=== PATIENT | male | born 1960 | race Asian ===

== ENCOUNTER 2018-07-26 13:21 | Emergency (ER) | payer MEDICAID, OTHER ==
[~2018-07-26] VITALS: Ht 162.6 cm; Wt 63.5 kg
--- NOTE | 2018-07-26 14:26 | NUR ---
ED Nurse Note: Pt came into the Er w/ complaints of blood in stool since Thursday. Pt had only 1 episode. Pt is complaining of abdominal pain 5/10. Non radiating. Pt is A + O x4. Ambulatory. Skin warm to touch.
[2018-07-26 14:27] VITALS: BP 117/76
[2018-07-26 14:35] LABS: APPEARANCE,URINE CLEAR; BASOPHILS % (AUTO) 1.2 % (0.0-2.0); BILIRUBIN, URINE NEGATIVE (NEGATIVE); COLOR,URINE PALE YELLOW; EOSINOPHILS % (AUTO) 3.4 % (0.0-3.0); GLUCOSE, URINE (UA) NEGATIVE (NEGATIVE); HEMATOCRIT 43.8 % (42.0-52.0); HEMOGLOBIN 15.4 G/DL (14.2-18.0); KETONES,URINE NEGATIVE (NEGATIVE); LEUKOCYTE ESTERASE ,URINE NEGATIVE (NEGATIVE); LYMPHOCYTES % (AUTO) 21.7 % (20.0-45.0); MEAN CORPUSCULAR VOLUME 88 FL (80-99); MONOCYTES % (AUTO) 6.1 % (1.0-10.0); NEUTROPHILS % (AUTO) 67.6 % (45.0-75.0); NITRITE,URINE NEGATIVE (NEGATIVE); PH,URINE 8 (4.5-8.0); PLATELET COUNT 274 K/UL (150-450); PROTEIN,URINE NEGATIVE (NEGATIVE); UROBILINOGEN,URINE NORMAL MG/DL (0.0-1.0); WHITE BLOOD COUNT 8.2 K/UL (4.8-10.8)
[2018-07-26 14:39] LABS: INR 0.9 (0.9-1.1)
--- NOTE | 2018-07-26 15:15 | Emergency Room Report ---
History of Present Illness General Chief Complaint: Gastrointestinal Bleed Source: Patient Present Illness HPI Patient states that for the past 3 weeks he has had very hard bowel movements with hard stools. He associates this with drinking bulletproof coffee. He denies abdominal pain. He states that 2 days ago he was having a very hard bowel movement and noted bright red blood in the toilet. He states that happened 2 other times in the past 2 days. He states that his stool is brown in color. He had a colonoscopy 3 years ago that was within normal limits. He denies abdominal pain. He denies fever or chills. He denies dysuria or hematuria. He denies easy bruising or bleeding. He denies chest pain or shortness of breath. He has no other complaints. Allergies: Coded Allergies: No Known Allergies (Unverified , 07/26/18) Patient History Past Medical History: none, see triage record Social History: Denies: smoking, alcohol use, drug use Reviewed Nursing Documentation: PMH: Agreed; PSxH: Agreed Nursing Documentation-PMH Past Medical History: No History, Except For Hx Gastrointestinal Problems: No - hemorroid Review of Systems All Other Systems: negative except mentioned in HPI Physical Exam Vital Signs Date Time Temp Pulse Resp B/P (MAP) Pulse Ox O2 Delivery O2 Flow Rate FiO2 07/26/18 13:26 98.2 80 18 121/82 96 Room Air 07/26/18 14:27 98 Sp02 EP Interpretation: reviewed, normal General Appearance: no apparent distress, alert, GCS 15, non-toxic Head: normocephalic, atraumatic Eyes: bilateral eye normal inspection, bilateral eye PERRL ENT: hearing grossly normal, normal pharynx, no angioedema, normal voice Neck: full range of motion, supple/symm/no masses Respiratory: chest non-tender, lungs clear, normal breath sounds, no respiratory distress, no retraction, no accessory muscle use, speaking full sentences Cardiovascular #1: regular rate, rhythm, no edema Gastrointestinal: normal bowel sounds, non tender, soft, non-distended, no guarding, no rebound Rectal: hemorrhoids - Multiple hemorrhoids. Brown stool. Musculoskeletal: back normal, gait/station normal, normal range of motion, non- tender Neurologic: alert, oriented x3, responsive, motor strength/tone normal, sensory intact, speech normal Psychiatric: judgement/insight normal, memory normal, mood/affect normal, no suicidal/homicidal ideation Skin: normal color, no rash, warm/dry, well hydrated Medical Decision Making Diagnostic Impression: Primary Impression: Bleeding hemorrhoids ER Course This patient has hemorrhoids identified on examination. The patient showed me photographs of the his brown stool with bright red blood in the toilet. The patient's laboratory workup is reassuring. Further, the patient also had a normal colonoscopy 3 years ago which is very reassuring. Rectal exam is benign. I will start the patient on steroid suppositories and stool softeners. The patient was instructed to follow-up closely with his primary care physician. Laboratory Tests Test 07/26/18 14:20 White Blood Count 8.2 K/UL (4.8-10.8) Red Blood Count 5.00 M/UL (4.70-6.10) Hemoglobin 15.4 G/DL (14.2-18.0) Hematocrit 43.8 % (42.0-52.0) Mean Corpuscular Volume 88 FL (80-99) Mean Corpuscular Hemoglobin 30.9 PG (27.0-31.0) Mean Corpuscular Hemoglobin Concent 35.2 G/DL (32.0-36.0) Red Cell Distribution Width 12.0 % (11.6-14.8) Platelet Count 274 K/UL (150-450) Mean Platelet Volume 6.5 FL (6.5-10.1) Neutrophils (%) (Auto) 67.6 % (45.0-75.0) Lymphocytes (%) (Auto) 21.7 % (20.0-45.0) Monocytes (%) (Auto) 6.1 % (1.0-10.0) Eosinophils (%) (Auto) 3.4 % (0.0-3.0) H Basophils (%) (Auto) 1.2 % (0.0-2.0) Prothrombin Time 10.0 SEC (9.30-11.50) Prothrombin Time INR 0.9 (0.9-1.1) PTT 27 SEC (23-33) Urine Color Pale yellow Urine Appearance Clear Urine pH 8 (4.5-8.0) Urine Specific [place] 1.010 (1.005-1.035) Urine Protein Negative (NEGATIVE) Urine Glucose (UA) Negative (NEGATIVE) Urine Ketones Negative (NEGATIVE) Urine Blood Negative (NEGATIVE) Urine Nitrite Negative (NEGATIVE) Urine Bilirubin Negative (NEGATIVE) Urine Urobilinogen Normal MG/DL (0.0-1.0) Urine Leukocyte Esterase Negative (NEGATIVE) Sodium Level Pending Potassium Level Pending Chloride Level Pending Carbon Dioxide Level Pending Blood Urea Nitrogen Pending Creatinine Pending Estimate Glomerular Filtration Rate Pending Glucose Level Pending Calcium Level Pending Total Bilirubin Pending Aspartate Amino Transferase (AST) Pending Alanine Aminotransferase (ALT) Pending Alkaline Phosphatase Pending Total Protein Pending Albumin Pending Globulin Pending Last Vital Signs Date Time Temp Pulse Resp B/P (MAP) Pulse Ox O2 Delivery O2 Flow Rate FiO2 07/26/18 14:27 74 30 Room Air 98 07/26/18 14:27 98.1 117/76 98 Scripts No Active Prescriptions or Reported Meds Referrals: NON PHYSICIAN (PCP) Ruthie Osorio DO Jul 26, 2018 15:15
[2018-07-26 15:27] LABS: ANION GAP 7 mmol/L (5-15); BLOOD UREA NITROGEN 13 mg/dL (7-18); CALCIUM 8.6 MG/DL (8.5-10.1); CARBON DIOXIDE 31 MMOL/L (21-32); CHLORIDE 104 MMOL/L (98-107); CREATININE 1.2 MG/DL (0.55-1.30); POTASSIUM 4.2 MMOL/L (3.5-5.1); SODIUM 142 MMOL/L (136-145)
[2018-07-26 15:32] LABS: ALBUMIN 4.2 G/DL (3.4-5.0); ALBUMIN/GLOBULIN RATIO 1.1 (1.0-2.7); ALKALINE PHOSPHATASE 74 U/L (46-116); BILIRUBIN,TOTAL 0.7 MG/DL (0.2-1.0)
[2018-07-26 15:47] LABS: ALANINE AMINOTRANSFERASE 38 U/L (12-78); ASPARTATE AMINO TRANSFERASE 50 U/L (15-37)
[2018-07-26] MEDS ORDERED: COLACE100 MG ORAL (15:51)
[2018-07-26] MEDS ORDERED: MIRALAX17 G2 ORAL (15:51)
[2018-07-26] MEDS ORDERED: ANUSOL-HC25 MG RECTAL (15:51)
[2018-07-26 16:03] VITALS: BP 113/79
--- NOTE | 2018-07-26 16:04 | NUR ---
ER DISCHARGE NOTE: Patient is cleared to be discharged per ERMD, pt is aox4, on room air, with stable vital signs. pt was given dc and prescription instructions, pt was able to verbalize understanding, pt id band and iv site removed without complications. pt is able to ambulate with steady gait. pt took all belongings.
== END 2018-07-26 16:04 | disposition home or self-care (01) ==
LOC: EMR 14:15
DX: K64.9 Unspecified hemorrhoids (principal)
CPT/HCPCS: 36415; 80053; 81003; 85025; 85610; 85730; 96360; 99284

== ENCOUNTER 2018-09-28 16:00 | Emergency (ER) | payer OTHER ==
[~2018-09-28] VITALS: Ht 162.6 cm; Wt 63.5 kg
[~2018-09-28 16:00] MED LIST: ANUSOL-HC25 MG RECTAL; COLACE100 MG ORAL; MIRALAX17 G2 ORAL
--- NOTE | 2018-09-28 16:10 | NUR ---
ED Nurse Note: Patient walked into ED c/o left earache for 1 week. patient is alert awake x4 ambulatory, breathing unlabored and even.
[2018-09-28 16:18] VITALS: BP 112/75
--- NOTE | 2018-09-28 16:31 | Emergency Room Report ---
History of Present Illness General Chief Complaint: Earache Present Illness HPI 58-year-old male with no significant past medical history here complaining of 2 days of pain and pressure in left ear. Patient reports that started after he was showering 2 days ago. Denies fever and chills, sore throat, cough and congestion. Patient is rating his pain 5 out of 10 upon opening and closing his jaw as well as touching his ear. Patient tried to clean his ear with Q-tip which she reports caused more pain in the affected area. Denies chest pain, shortness of breath, palpitation, and other associated symptoms. Denies hearing loss, vertigo, dizziness, tinnitus Allergies: Coded Allergies: No Known Allergies (Unverified , 07/26/18) Patient History Past Medical History: see triage record Past Surgical History: unable to obtain Pertinent Family History: none Immunizations: UTD Reviewed Nursing Documentation: PMH: Agreed; PSxH: Agreed Nursing Documentation-PMH Hx Gastrointestinal Problems: No - hemorroid Review of Systems All Other Systems: negative except mentioned in HPI Physical Exam Vital Signs Date Time Temp Pulse Resp B/P (MAP) Pulse Ox O2 Delivery O2 Flow Rate FiO2 09/28/18 16:02 98.4 82 20 114/77 (89) 96 Room Air Sp02 EP Interpretation: reviewed, normal General Appearance: normal inspection, well appearing, no apparent distress, alert Eyes: bilateral eye normal inspection, bilateral eye PERRL ENT: normal pharynx, normal voice, uvula midline, other - Erythema of left external ear canal, tragus tender to palpation, no bulging or perforation of TM noted Neck: normal inspection, full range of motion, supple, thyroid normal Respiratory: normal inspection, chest non-tender, lungs clear, normal breath sounds, no rhonchi, no respiratory distress Cardiovascular #1: normal inspection, normal peripheral pulses, regular rate, rhythm, no murmur Gastrointestinal: normal inspection, non tender, soft Genitourinary: normal inspection, no CVA tenderness Neurologic: normal inspection, alert, oriented x3, responsive Psychiatric: normal inspection, judgement/insight normal Skin: normal inspection, normal color, no rash, warm/dry Lymphatic: normal inspection, no adenopathy Medical Decision Making PA Attestation All my diagnosis and treatment plans were reviewed ad discussed with my supervising physician Dr. Royal Diagnostic Impression: Primary Impression: Otitis externa ER Course 58-year-old male with no significant past medical history here complaining of 2 days of pain and pressure in left ear. Patient reports that started after he was showering 2 days ago. Denies fever and chills, sore throat, cough and congestion. Patient is rating his pain 5 out of 10 upon opening and closing his jaw as well as touching his ear. Patient tried to clean his ear with Q-tip which she reports caused more pain in the affected area. Denies chest pain, shortness of breath, palpitation, and other associated symptoms. Denies hearing loss, vertigo, dizziness, tinnitus Ddx considered but are not limited to: strep pharyngitis, URI, tonsilitis, peritonsillar absacess, influneza, otitis media, otitis externa, benign positional vertigo Vital signs: are WNL, pt. is afebrile H&PE are most consistent with: Otitis externa ORDERS: Ofloxacin eardrops, ibuprofen ED INTERVENTIONS: None required at this time. DISCHARGE: At this time pt. is stable for d/c to home. Will provide printed patient care instructions, and any necessary prescriptions. Care plan and follow up instructions have been discussed with the patient prior to discharge. I advised the patient to avoid water exposure to the affected area where shower Over his ear. Follow-up with a primary care provider if symptoms do not improve and referral to ENT as needed Last Vital Signs Date Time Temp Pulse Resp B/P (MAP) Pulse Ox O2 Delivery O2 Flow Rate FiO2 09/28/18 16:18 98.4 84 16 112/75 99 Room Air Disposition: HOME, SELF-CARE Condition: Stable Scripts Ibuprofen* (MOTRIN*) 600 Mg Tablet 600 MG ORAL Q8H PRN for For Pain, #30 TAB 0 Refills Prov: Pao Connor 09/28/18 Ofloxacin (OFLOXACIN) 5 Ml Drops 10 DROP OT DAILY for 7 Days, #5 ML Prov: Pao Connor 09/28/18 Patient Instructions: Otitis Externa, [id number] Additional Instructions: Follow-up with your primary care provider if symptoms do not improve and follow- up with ear nose throat doctor Pao Connor Sep 28, 2018 16:31
[2018-09-28] MEDS ORDERED: IBUPROFEN600 MG ORAL (16:33)
[2018-09-28] MEDS ORDERED: OFLOXACIN5 ML OT (16:33)
--- NOTE | 2018-09-28 16:38 | NUR ---
ER DISCHARGE NOTE: Patient is cleared to be discharged per YOVANNY NO, pt is aox4, on room air, with stable vital signs. pt was given dc and prescription instructions, pt was able to verbalize understanding, pt id band removed without complications. pt is able to ambulate with steady gait. pt took all belongings.
== END 2018-09-28 16:38 | disposition home or self-care (01) ==
LOC: EMR 16:30
DX: H60.92 Unspecified otitis externa, left ear (principal)
CPT/HCPCS: 99282